=== PATIENT | female | born 1960 ===

== ENCOUNTER 2024-01-20 14:35 | Outpatient (CLI) | payer OTHER ==
[~2024-01-20 14:35] MED LIST: GILPHEX TR1 TAB.SR . PO; PANADOL EXTRA500 MG PO
== END 2024-01-20 14:43 | disposition home or self-care (01) ==
LOC: SONOGRAMA 14:35
PROVIDERS: ATTEND Pathology Anatomic Pathology & Clinical Pathology
DX: D34 Benign neoplasm of thyroid gland (principal); E07.89 Other specified disorders of thyroid; E04.2 Nontoxic multinodular goiter